=== PATIENT | male | born 1970 | race Caucasian/White ===

== ENCOUNTER 2018-10-19 20:03 | Emergency (ER) | payer SELFPAY ==
[~2018-10-19] VITALS: Ht 175.3 cm; Wt 75.0 kg
[2018-10-19] MEDS ORDERED: ASPIRIN 81MG TABLET PO ONE (21:15)
[2018-10-19] MEDS: NITROGLYCERIN 0.4MG TABLET SL SL PRN (21:43)
[2018-10-19 21:53] LABS: BASOPHILS % 2.5 % (0.0-2.0); EOSINOPHILS % 1.1 % (0.0-5.0); HEMATOCRIT. 31.1 % (42.0-52.0); HEMOGLOBIN. 10.7 g/dL (14.0-18.0); MEAN CORPUSCULAR HEMOGLOBIN 32.7 pg (28.0-32.0); MEAN CORPUSCULAR VOLUME 95.1 fL (80.0-94.0); MEAN PLATELET VOLUME 8.3 fl (7.4-10.4); MONOCYTES % 9.4 % (2.0-8.0); PLATELET 72 x1000/uL (130-400); RED BLOOD CELL COUNT 3.27 mill/uL (4.7-6.1); RED CELL DISTRIBUTION WIDTH 15.3 % (11.6-14.6)
[2018-10-19 21:56] LABS: CHLORIDE 101 mEq/L (98-107)
[2018-10-19 22:12] LABS: ETHANOL BLOOD 363 mg/dL
[2018-10-19 23:18] LABS: *AMPHETAMINES SCREEN URINE NEGATIVE (NEGATIVE); *BARBITURATES SCREEN URINE NEGATIVE (NEGATIVE); *BENZODIAZEPINES SCREEN URINE NEGATIVE (NEGATIVE); *COCAINE SCREEN URINE NEGATIVE (NEGATIVE); METHADONE URINE SCREEN NEGATIVE (NEGATIVE); OPIATES URINE SCREEN NEGATIVE (NEGATIVE); PHENCYCLIDINE URINE SCREEN NEGATIVE (NEGATIVE)
[2018-10-19 23:19] LABS: CANNABINOID URINE SCREEN NEGATIVE (NEGATIVE)
[2018-10-19] MEDS ORDERED: LORAZEPAM 1MG TABLET PO ONE (23:45)
[2018-10-20] MEDS ORDERED: ACETAMINOPHEN 325MG TABLET PO STA (06:27)
[2018-10-20] MEDS: NITROGLYCERIN 0.4MG TABLET SL SL PRN (08:36)
[2018-10-20] MEDS ORDERED: KETOROLAC 60MG/2ML VIAL IM STA (11:09)
[2018-10-20 13:54] VITALS: BP 134/82
== END 2018-10-20 13:55 | disposition home or self-care (01) ==
LOC: ER 20:03
DX: R07.9 Chest pain, unspecified (principal); F10.129 Alcohol abuse with intoxication, unspecified; Y90.8 Blood alcohol level of 240 mg/100 ml or more; E11.9 Type 2 diabetes mellitus without complications
CPT/HCPCS: 36415; 71045; 80053; 80305; 80320; 82962; 83880; 84484; 85025; 93005; 96372; 99284; J1885; Z7610; G0480